=== PATIENT | male | born 2000 | race Caucasian/White ===

== ENCOUNTER 2021-11-30 22:25 | Inpatient (IN) | payer OTHER ==
[~2021-11-30] VITALS: Ht 177.8 cm; Wt 83.5 kg
[2021-11-30 23:17] LABS: BASO % 0.3 % (0.0-2.0); EOS # 0.1 K/mm3 (0.0-0.7); EOS % 0.6 % (0.0-4.0); GRAN # 10.2 K/mm3 (1.4-6.5); GRAN % 68.3 % (42.2-75.2); HEMATOCRIT 43.1 % (42.0-52.0); HEMOGLOBIN 15.3 g/dl (13.5-18.0); LYMPH # 3.4 K/mm3 (1.2-3.4); LYMPH % 22.9 % (20.0-51.0); MEAN CELL VOLUME 83 fl (80.0-100.0); MEAN CORPUSCULAR HEMOGLOBIN 30 pg (27-31); MEAN CORPUSCULAR HGB CONC 36 g/dl (33.0-37.0); MEAN PLATELET VOLUME 8.7 fl (7.4-10.4); MONO # 1.1 K/mm3 (0.1-0.6); MONO % 7.6 % (1.7-9.3); PLATELET COUNT 228 K/mm3 (130-400); RED BLOOD COUNT 5.18 M/mm3 (4.20-5.60); REDCELL DISTRIBUTION WIDTH-CV 11.9 % (11.5-14.5)
[2021-11-30 23:44] LABS: BILIRUBIN,TOTAL 0.7 mg/dL (0.2-1.2); C-REACTIVE PROTEIN 2.93 mg/dL (0.00-0.50); CALCIUM 9.9 mg/dL (8.4-10.2); CREATININE, serum 1.13 mg/dL (0.72-1.25); POTASSIUM 3.7 mmol/L (3.5-4.5); TOTAL PROTEIN 7.8 gm/dL (6.2-8.1)
[2021-11-30 23:54] LABS: COLLECTION METHOD CLEAN CATCH
[2021-12-01] VITALS (7 sets, daily range): BP systolic 99–133; BP diastolic 54–94; PULSE 74–100; TEMP 98–99.6
[2021-12-01 00:05] LABS: MUCOUS Present (NOT PRESENT); PH 6 (5-8); SQUAMOUS EPITHELIAL None Seen /hpf (0-10); URINE APPEARANCE Clear (CLEAR/HAZY); URINE BACTERIA None Seen /hpf (NONE SEEN); URINE BILIRUBIN Negative (NEGATIVE); URINE BLOOD Negative (NEGATIVE); URINE COLOR Straw (YELLOW); URINE GLUCOSE Negative (NEGATIVE); URINE KETONE Negative (NEGATIVE); URINE LEUKOCYTE ESTERASE Negative (NEGATIVE); URINE NITRATE Negative (NEGATIVE); URINE PROTEIN(semi-quant) Negative (NEGATIVE); URINE RBC None Seen /hpf (0-2); URINE UROBILINOGEN Negative (NEGATIVE)
--- NOTE | 2021-12-01 02:50 | NUR ---
PT AMBULATES FROM ED TO ROOM 322. PT HAS INT TO RAC. IS ALERT AND ORIENTED X4. RATES PAIN 4/10, DENIES NEED FOR PAIN MEDS AT THIS TIME.
--- NOTE | 2021-12-01 04:00 | NUR ---
ADMISSION QUESTIONS COMPLETED. IVF INFUSING TO RAC WITHOUT REDNESS OR SWELLING. HAS VOIDED X1 SINCE ARRIVAL TO ROOM.
--- NOTE | 2021-12-01 08:46 | NUR ---
PT RESTING IN BED. MORNING MEDICATIONS GIVEN. SHIFT ASSESSMENT COMPLETED. REPORTS PAIN 04/08, MEDICATION GIVEN PER eMAR. SURGICAL CONSENT OBTAINED AND ON CHART. DENIES NEEDS AT THIS TIME. NPO SINCE MIDNIGHT.
--- NOTE | 2021-12-01 09:24 | NUR ---
Industrial Automation Engineer met with patient to discuss discharge planning. Patient lives in [place] with roommates and is a student at [employer]. Patient is from [place], which is where his mom Lynette (ph#[phone]) lives. Patient utilizes [facility] as needed and has not established primary care here in [place]. Patient states he was seeing a crystalizer in [place]. Patient does not use any DME and is independent with [facility]. Patient does not have Advance Directives. Patient plans to stay with his mom after he discharges. Discharge Plan: Home with mom
--- NOTE | 2021-12-01 10:06 | NUR ---
Initial visit; Patient doing well, thanked Flatlock Sewing Machine Operator for offering God's blessings and keeping him in her prayers.
--- NOTE | 2021-12-01 12:13 | NUR ---
.REPORT GIVEN TO GENESIS MARIE
[2021-12-01] MEDS ORDERED: NORCO 325 MG-51 TAB PO (12:25)
[2021-12-01] MEDS ORDERED: AMOXICILLIN 8751 TAB PO (12:25)
--- NOTE | 2021-12-01 13:13 | NUR ---
Patient back to the room from surgery at 12:50 pm. Patient awake, and A/Ox4. Patient denies any pain or discomfort. VS stable. Abdominal Lap site x3 C/D/I. IV fluid currently infusing well per order. Call light in reach. Will continue to monitor.
--- NOTE | 2021-12-01 15:37 | NUR ---
Patient doing well. Patient alert and oriented. Tolerating PO intake. Patient ate a sandwitch and drinking water without difficulty. Patient independent in the room. Walk to the bathroom without difficulty. VS stable. Mom in the room. Call light in reach.
--- NOTE | 2021-12-01 15:57 | NUR ---
Discharge instructions given and paperwork completed. Patient verbalized understanding. IV removed.
--- NOTE | 2021-12-01 16:11 | NUR ---
Patient's mom came to pick and shovel worker patient. Patient left facility at 16:12 pm.
== END 2021-12-01 16:12 | disposition home or self-care (01) | DRG 340 ==
LOC: COL.ER 22:25 → SURG 12-01 01:11
PROVIDERS: Nurse Practitioner; ADMIT Surgery
PROC: 0DTJ4ZZ Resection of Appendix, Percutaneous Endoscopic Approach (ICD-10-PCS; principal; 2021-12-01 11:30)
DX: K35.32 Acute appendicitis with perforation, localized peritonitis, and gangrene, without abscess (principal)
CPT/HCPCS: J1100; J1170; J1885; J2405; J2543; J2704; J3010; J7030; J7120; Q9967